=== PATIENT | female | born 2000 | race Caucasian/White ===

== ENCOUNTER 2022-09-23 14:44 | Emergency (ER) | payer BC, SELFPAY ==
[2022-09-23 15:19] VITALS: BP 117/79; PULSE 67; RESP 16; TEMP 36.6; O2SAT 99; BMI 21.3
--- NOTE | 2022-09-23 16:33 | ED.GENADULT ---
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 She has had symptoms of chest heaviness flushing, not feeling well for the last couple of days. [employer] is in midterm exam is now and she has been somewhat stressed by that, she is currently on air appraisal lithium and norgestimate. She has a history of I believe ADHD and anxiety and depression. An EKG was done on presentation that by my read shows sinus rhythm with sinus arrhythmia some artifact present no marked ST T wave changes but there is some artifact that I think obscures little bit of reading but there is no gross marked changes. She has not had any bleeding or clotting problems in the past, does not smoke, menstrual cycles have been regular. Presents to the ED for evaluation Related Data Home Medications Medication Instructions Recorded Confirmed aripiprazole 15 mg tablet (Abilify) 15 mg PO QHS 09/02/22 09/23/22 lithium carbonate 300 mg tablet 300 mg PO BID 09/02/22 09/23/22 norgestimate 0.25 mg-ethinyl 1 tab PO QDAY 09/02/22 09/23/22 estradiol 35 mcg tablet (Sprintec (28)) Allergies Allergy/AdvReac Type Severity Reaction Status Date / Time No Known Drug Allergies Allergy Verified 09/23/22 16:26 Review of Systems Status of ROS: Reports: 10 or more systems reviewed and unremarkable except as noted in History and below PFSH PFSH Surgical History History of lingual frenulectomy Family History Maternal Grandfather Heart disease Maternal Grandmother Breast cancer Mother Brain cancer High blood pressure Father Skin cancer Family/Other FH: mental illness Abuse, drug or alcohol CHEK2-related breast cancer Social History Smoking Status: Never smoker Do you use any of these nicotine containing products: None Second hand tobacco smoke exposure: No How often do you have a drink containing alcohol: monthly or less How many standard drinks containing alcohol do you have on a typical day: 1 or 2 How often do you have six or more drinks on one occasion: Never AUDIT-C Alcohol total score: 1 Non-prescribed substance use: denies use service: No Exam Narrative: Exam Narrative: Objective: Patient is in no apparent distress talks in even and nonlabored sentences, noncyanotic Vital signs are completely unremarkable O2 sat 99% on room air HEENT is unremarkable no facial asymmetry no scleral icterus Mouth clear Neck is supple Lungs are clear no rales or wheezing Heart rhythm regular no murmur Abdomen benign soft nontender Extremities are no edema neurologic nonfocal Good peripheral perfusion skin warm and dry. Const: Vital Signs, click to edit/add: Vital Signs - 24 hr 09/23/22 15:19 Temperature 97.8 F Pulse Rate [Pulse Oximeter] 67 Respiratory Rate 16 Blood Pressure [Ri ght Forearm] 117/79 Pulse Oximetry 99 Oxygen Delivery Me thod Room Air Course Vital Signs Vital signs: Initial Vital Signs Temperature 97.8 F 09/23/22 15:19 Temperature Source Temporal Artery Scan 09/23/22 15:19 Pulse Rate 67 09/23/22 15:19 Respiratory Rate 16 09/23/22 15:19 Blood Pressure 117/79 09/23/22 15:19 Blood Pressure Mean 91 09/23/22 15:19 Blood Pressure Position Sitting 09/23/22 15:19 Pulse Oximetry 99 09/23/22 15:19 Oxygen Delivery Method 09/23/22 15:19 Vital Signs Temperature 97.8 F 09/23/22 15:19 Pulse Rate 67 09/23/22 15:19 Respiratory Rate 16 09/23/22 15:19 Blood Pressure 117/79 09/23/22 15:19 Pulse Oximetry 99 09/23/22 15:19 Oxygen Delivery Method 09/23/22 15:19 Temperature 97.8 F 09/23/22 15:19 Pulse Rate 67 09/23/22 15:19 Respiratory Rate 16 09/23/22 15:19 Blood Pressure 117/79 09/23/22 15:19 Pulse Oximetry 99 09/23/22 15:19 Oxygen Delivery Method 09/23/22 15:19 Medical Decision Making MDM Narrative Medical decision making narrative: The patient has generalized feeling of illness, she will get some basic labs including an EKG looks a that looks reassuring, D-dimer, electrolytes CBC. She also requests a prolactin be drawn as she had some nipple discharge and this [facility]. Pending labs disposition planning, patient does appear to have a little bit of anxiety, and does have a history of depression anxiety. She declines an IV at this time and this was offered to give her IV fluid. She will take oral fluids instead. Addendum: The patient's laboratory studies look reassuring, her EKG shows nonspecific ST changes but given her age think this is fairly normal. Her D-dimer is negative. I think she can rest, light activity, fluids, continue her usual medications, follow up with regular doctor within the next 48 hours, certainly sooner problems concerns worsening. she in her mom were comfortable plan will follow up as directed Lab Data Labs: Lab Results 09/23/22 09/23/22 09/23/22 Range/Units 16:45 16:45 16:45 WBC 10.53 (4.50-11.00) K/uL RBC 4.58 (4.00-5.20) m/uL Hgb 13.8 (12.0-16.0) gm/dL Hct 42.0 (33.0-51.0) % MCV 92 (80-100) fL MCH 30 (26-34) pg MCHC 33 (32-36) gm/dL RDW Coeff of René 11.5 (11.5-15.5) % Plt Count 285 (140-440) K/uL Neut % (Auto) 66.5 (42.0-72.0) % Lymph % (Auto) 27.3 (20-44) % [place] % (Auto) 5.1 (0.0-11.0) % Eos % (Auto) 0.7 (0.0-7.0) % Baso % (Auto) 0.3 (0.0-3.0) % Neut # (Auto) 7.01 H (1.7-7.0) K/uL Lymph # (Auto) 2.87 (0.90-2.90) K/uL [place] # (Auto) 0.50 (0.00-0.90) K/UL Eos # (Auto) 0.07 (0.00-0.50) K/uL Baso # (Auto) 0.03 (0.00-0.30) K/uL Abs Immat Gran (auto) 0.01 (0.00-0.30) K/uL D-Dimer Quant (PE/DVT) < 0.27 (0.00-0.50) ug/ml Sodium 138 (135-149) mmol/L Potassium 4.4 (3.6-5.1) mmol/L Chloride 106 (96-114) mmol/L Carbon Dioxide 23 (20-32) mmol/L BUN 10 (5-24) mg/dL Creatinine 0.8 (0.5-1.5) mg/dL Estimated Creat Clear 111.52 Estimated GFR 107 ml/min Glucose 86 (60-115) mg/dL Calcium 9.7 (8.4-10.6) mg/dL Total Bilirubin 0.6 (0.1-1.5) mg/dL Direct Bilirubin 0.0 (0.0-0.5) mg/dL AST 29 (12-35) U/L ALT 18 (4-35) U/L Alkaline Phosphatase 37 L (40-150) U/L C-Reactive Protein < 0.5 L (0.5-1.0) mg/dL Total Protein 7.2 (6.0-8.3) g/dL Albumin 4.6 (3.3-5.0) g/dL Discharge Plan Discharge Clinical Impression: Malaise Patient Disposition: Home w/ Parent or Adult Condition: Stable Additional Instructions: Rest, light activity, Tylenol as needed, continue home medications, follow up with primary care within 48 hours. Return to ED sooner. As needed Activity Level: Light activity Discharge Diet: Regular Prescriptions: No Action lithium carbonate 300 mg tablet 300 mg PO BID norgestimate-ethinyl estradiol [Sprintec (28)] 0.25-35 mg-mcg tablet 1 tab PO QDAY aripiprazole [Abilify] 15 mg tablet 15 mg PO QHS Follow Up/Referrals: Provider,Not a Local [Referring] - Stand Alone Forms: [employer] Info Instructions
[2022-09-23 16:52] LABS: Basophils Absolute Auto 0.03 K/uL (0.00-0.30); Basophils Percent Auto 0.3 % (0.0-3.0); Eosinophils Absolute Auto 0.07 K/uL (0.00-0.50); Eosinophils Percent Auto 0.7 % (0.0-7.0); Hemoglobin* 13.8 gm/dL (12.0-16.0); Immature Granulocytes Abs Auto 0.01 K/uL (0.00-0.30); Lymphocytes Absolute Auto 2.87 K/uL (0.90-2.90); Lymphocytes Percent Auto 27.3 % (20-44); Mean Corpuscular HGB Conc 33 gm/dL (32-36); Mean Corpuscular Hemoglobin 30 pg (26-34); Mean Corpuscular Volume 92 fL (80-100); Monocytes Percent Auto 5.1 % (0.0-11.0); Neutrophils Absolute Auto 7.01 K/uL (1.7-7.0); Neutrophils Percent Auto 66.5 % (42.0-72.0); Platelet Count* 285 K/uL (140-440); RDW Coefficient of Variation % 11.5 % (11.5-15.5); Red Blood Count 4.58 m/uL (4.00-5.20); White Blood Count* 10.53 K/uL (4.50-11.00)
[2022-09-23 16:56] LABS: Slide Review Reflex No
[2022-09-23 17:04] LABS: Chloride* 106 mmol/L (96-114)
[2022-09-23 17:05] LABS: Albumin* 4.6 g/dL (3.3-5.0); Potassium* 4.4 mmol/L (3.6-5.1); Sodium* 138 mmol/L (135-149)
[2022-09-23 17:07] LABS: Creatinine* 0.8 mg/dL (0.5-1.5); Est. Creatinine Clearance* 111.52; Estimated Glomerular Filt Rate 107 ml/min
[2022-09-23 17:08] LABS: Alanine Aminotransferase* 18 U/L (4-35); Alkaline Phosphatase* 37 U/L (40-150); Aspartate Amino Transferase* 29 U/L (12-35); Bilirubin Total* 0.6 mg/dL (0.1-1.5); Blood Urea Nitrogen* 10 mg/dL (5-24); Carbon Dioxide* 23 mmol/L (20-32); Glucose* 86 mg/dL (60-115); Total Protein* 7.2 g/dL (6.0-8.3)
[2022-09-23 17:09] LABS: Calcium* 9.7 mg/dL (8.4-10.6)
[2022-09-23 17:16] LABS: C Reactive Protein* < 0.5 mg/dL (0.5-1.0); D Dimer Quantitative* < 0.27 ug/ml (0.00-0.50)
[2022-09-25 17:12] LABS: Lithium, Serum or Plasma 0.3 mmol/L (0.5-1.2)
[2022-09-25 19:57] LABS: Prolactin 11.2 ng/mL (2.8-29.2)
== END 2022-09-23 17:30 | disposition home or self-care (01) ==
PROVIDERS: Emergency Provider Family Medicine; PCP Family Medicine
DX: R53.81 Other malaise (principal)
CPT/HCPCS: 36415; 80048; 80076; 80178; 84146; 85025; 85379; 86140; 99283; 99284

== ENCOUNTER 2022-10-05 20:52 | Outpatient (CLI) | payer BC, SELFPAY | END 2022-10-05 20:53 | disposition home or self-care (01) | LOC: SLEEP 20:52 | PROVIDERS: PCP Family Medicine; Visit Provider Internal Medicine | DX: G47.33 Obstructive sleep apnea (adult) (pediatric) (principal) | CPT/HCPCS: 87635; 95810 ==